=== PATIENT | male | born 1970 | race Caucasian/White ===

== ENCOUNTER 2018-05-08 09:46 | Emergency (ER) | payer MEDICARE, MEDICAID ==
[~2018-05-08] VITALS: Ht 177.8 cm; Wt 74.8 kg
[~2018-05-08 09:46] MED LIST: METFORMIN; NORCO; SERAQUEL
[2018-05-08 10:07] VITALS: BP 134/100
[2018-05-08 10:29] LABS: Basophils # (auto) 0.1 uL; Basophils % (auto) 0.7 % (0.0-2.0); Eosinophils # (auto) 0.2 uL; Eosinophils % (auto) 2.8 % (0.0-7.0); Hematocrit 45.8 % (41.0-53.0); Hemoglobin 15.5 g/dL (13.5-17.5); Lymphocytes # (auto) 2.2 uL; Lymphocytes % (auto) 28.9 % (10.0-50.0); Mean Corpuscular Hemoglobin 29.5 pg (28.0-32.0); Mean Corpuscular Hgb Conc. 33.9 g/dL (32.0-36.0); Mean Corpuscular Volume 87.1 fL (80.0-100.0); Monocytes # (auto) 0.5 uL; Monocytes % (auto) 6.7 % (0.0-12.0); Neutrophils # (auto) 4.7 uL; Neutrophils % (auto) 60.9 % (37.0-80.0); Nucleated Red Blood Cells % 0.1 %; Platelet Count (auto) 271 10^3/uL (140-450); Red Blood Cells 5.26 10^6/uL (4.5-5.90); Red Cell Distribution Width 14.5 % (11.8-14.3); White Blood Cell 7.7 10^3/uL (4.4-10.8)
[2018-05-08] MEDS ORDERED: KETOROLAC TROMETH 60MG/2ML VIAL IM ONE (10:30)
[2018-05-08 10:52] LABS: Albumin 4.2 g/dL (3.4-5.0); BUN/Creatinine Ratio 8.3; Bilirubin, Total 0.2 mg/dL (0.2-1.0); Calcium 9.2 mg/dL (8.5-10.1); Potassium 4.6 mmol/L (3.5-5.1); Total Protein 7.9 g/dL (6.4-8.2)
== END 2018-05-08 11:16 | disposition home or self-care (01) ==
LOC: ER 09:51
DX: R10.9 Unspecified abdominal pain (principal); R30.0 Dysuria; R39.15 Urgency of urination; E11.9 Type 2 diabetes mellitus without complications; I10 Essential (primary) hypertension; F17.210 Nicotine dependence, cigarettes, uncomplicated; Z88.1 Allergy status to other antibiotic agents; Z88.8 Allergy status to other drugs, medicaments and biological substances; Z79.84 Long term (current) use of oral hypoglycemic drugs
CPT/HCPCS: 36415; 74176; 80053; 85025; 96372; 99285; J1885

== ENCOUNTER 2018-06-08 08:24 | Emergency (ER) | payer MEDICARE, MEDICAID ==
[~2018-06-08] VITALS: Ht 177.8 cm; Wt 74.8 kg
[2018-06-08 09:05] VITALS: BP 141/100
[2018-06-08] MEDS ORDERED: KETOROLAC TROMETH 60MG/2ML VIAL IM ONE (09:30)
== END 2018-06-08 09:05 | disposition home or self-care (01) ==
LOC: ER 08:24
DX: M77.32 Calcaneal spur, left foot (principal); J44.9 Chronic obstructive pulmonary disease, unspecified; E11.9 Type 2 diabetes mellitus without complications; I10 Essential (primary) hypertension; F12.10 Cannabis abuse, uncomplicated; F17.210 Nicotine dependence, cigarettes, uncomplicated; Z88.8 Allergy status to other drugs, medicaments and biological substances; Z88.1 Allergy status to other antibiotic agents
CPT/HCPCS: 73630; 96372; 99284; J1885

== ENCOUNTER 2019-05-17 10:28 | Inpatient (IN) | payer MEDICARE, MEDICAID ==
[~2019-05-17] VITALS: Ht 177.8 cm; Wt 97.3 kg
[2019-05-17 11:18] LABS: Basophils # (auto) 0.1 uL; Basophils % (auto) 0.8 % (0.0-2.0); Eosinophils # (auto) 0.1 uL; Eosinophils % (auto) 0.8 % (0.0-7.0); Hematocrit 39.6 % (41.0-53.0); Hemoglobin 13.4 g/dL (13.5-17.5); Lymphocytes # (auto) 1.3 uL; Lymphocytes % (auto) 13.4 % (10.0-50.0); Mean Corpuscular Hemoglobin 29.6 pg (28.0-32.0); Mean Corpuscular Hgb Conc. 33.9 g/dL (32.0-36.0); Mean Corpuscular Volume 87.2 fL (80.0-100.0); Monocytes # (auto) 0.7 uL; Monocytes % (auto) 7.2 % (0.0-12.0); Neutrophils # (auto) 7.4 uL; Neutrophils % (auto) 77.8 % (37.0-80.0); Platelet Count (auto) 350 10^3/uL (140-450); Red Blood Cells 4.54 10^6/uL (4.5-5.90); Red Cell Distribution Width 14.2 % (11.8-14.3); White Blood Cell 9.5 10^3/uL (4.4-10.8)
[2019-05-17 11:45] LABS: Albumin 3.9 g/dL (3.4-5.0); BUN/Creatinine Ratio 11.1; Calcium 8.8 mg/dL (8.5-10.1)
[2019-05-17 11:47] LABS: Bilirubin, Total 0.3 mg/dL (0.2-1.0); Total Protein 7.3 g/dL (6.4-8.2)
[2019-05-17 11:50] LABS: Potassium 5.6 mmol/L (3.5-5.1)
[2019-05-17] MEDS ORDERED: SODIUM CHLORIDE 0.9% 1,000 ML IVB ONE (12:46)
[2019-05-17 13:23] LABS: Magnesium 1.5 mg/dL (1.6-2.6)
[2019-05-17 13:27] LABS: Urine Bacteria NONE SEEN /hpf (None Seen); Urine Blood Negative /uL (Negative); Urine Hyaline Cast FEW /lpf (0 - 2); Urine WBC 1 /hpf (0 - 3)
[2019-05-17 13:41] LABS: Magnesium 1.4 mg/dL (1.6-2.6)
[2019-05-17] MEDS ORDERED: MORPHINE SULF INJ 2 MG/ML SYRINGE 1ML IV ONE (15:00)
[2019-05-17] MEDS ORDERED: ONDANSETRON HCL 4 MG/2 ML VIAL IV ONE (15:00)
[2019-05-17] MEDS: MAGNESIUM SULFATE 1GM/100ML 100 ML IV SCH ×2 (15:21→15:53)
[2019-05-17] MEDS ORDERED: ACETAMINOPHEN 500 MG TAB PO PRN (16:15)
[2019-05-17] MEDS ORDERED: DEXTROSE (50%) 50ML SYRG IV PRN (16:15)
[2019-05-17] MEDS ORDERED: NITROGLYCERIN 0.4 MG SL TAB SL PRN (16:15)
[2019-05-17] MEDS ORDERED: LEVOFLOXACIN 500MG 100 ML IV ONE (16:15)
[2019-05-17] MEDS ORDERED: PROMETHAZINE HCL 25 MG/ML 1ML IV PRN (16:15)
[2019-05-17] MEDS ORDERED: TEMAZEPAM 15 MG CAP PO PRN (16:15)
[2019-05-17] MEDS ORDERED: ALBUTEROL SULF 2.5 MG/0.5ML(0.5%) NEB SOLN NEB PRN ×2 (16:15→18:45)
[2019-05-17] MEDS ORDERED: MORPHINE SULF INJ 2 MG/ML SYRINGE 1ML IV PRN (16:15)
[2019-05-17] MEDS: InsuLIN REG 1unit/0.01ml Soln (100units/ml) SC SCH ×2 (17:00)
[2019-05-17 17:05] LABS: CRP High Sensitivity 1.78 mg/dL (< 0.3)
[2019-05-17] MEDS: SODIUM CHLORIDE 0.9% 1,000 ML IV SCH (17:06)
--- NOTE | 2019-05-17 18:00 | NUR ---
Telemetry admit from ER Admitted to Telemetry unit. No report received from ED. Patient oriented to primary RN, unit, room, bed, and unit policies regarding patient care and visiting hours. Patient signed AMA paper to go outside and smoke. Patient now on continuous telemetry monitoring, tele box #[id number]. Dinner tray was ordered for patient. Patient encouraged to call if they need something. All questions and concerns addressed, patient verbalized understanding.
[2019-05-17] MEDS: ALBUTEROL SULF 2.5 MG/0.5ML(0.5%) NEB SOLN NEB SCH (18:26)
[2019-05-17] MEDS: IPRATROPIUM BROM 0.5 MG/2.5ML INH SOL NEB SCH (18:26)
[2019-05-17 18:27] VITALS: BP 109/62
[2019-05-17] MEDS: ACCU-CHEK COMFORT CURVE STRIP VI SCH ×2 (18:27→22:00)
[2019-05-17] MEDS ORDERED: ALBUTEROL SULF 2.5 MG/0.5ML(0.5%) NEB SOLN NEB SCH (18:45)
[2019-05-17] MEDS ORDERED: IPRATROPIUM BROM 0.5 MG/2.5ML INH SOL NEB SCH (18:46)
[2019-05-17] MEDS ORDERED: PANT1INJ3 PO (19:04)
[2019-05-17] MEDS ORDERED: METF-370 PO (19:04)
[2019-05-17] MEDS ORDERED: LOPE2TAB78 PO (19:04)
[2019-05-17] MEDS ORDERED: ASPI81CH43 PO (19:04)
[2019-05-17] MEDS ORDERED: PHE100C PO (19:04)
[2019-05-17] MEDS ORDERED: HYDR-531 PO (19:04)
[2019-05-17] MEDS ORDERED: IBUP600T27 PO (19:04)
[2019-05-17] MEDS ORDERED: BACL10TA PO (19:04)
[2019-05-17] MEDS ORDERED: GABA-339 PO (19:04)
[2019-05-17] MEDS ORDERED: TERA5CAP42 PO (19:04)
[2019-05-17] MEDS ORDERED: OLAN10TA29 PO (19:04)
[2019-05-17] MEDS ORDERED: ERGO400T PO (19:04)
[2019-05-17] MEDS ORDERED: MIRT30TA PO (19:04)
[2019-05-17] MEDS ORDERED: LISI-706 PO (19:04)
[2019-05-17] MEDS: traMADol HCL 50 MG TAB PO PRN (20:00)
--- NOTE | 2019-05-17 20:00 | NUR ---
RECEIVE IN ROOM WENT OUTSIDE FOR A SMOKE SKIN WARM AND DRY TO TOUCH WANTS TO EAT DINNER LATER
[2019-05-17] MEDS ORDERED: OLANZapine 5 MG TAB ONE (21:40)
[2019-05-17] MEDS: metroNIDAZOLE 500 MG TAB PO SCH (21:42)
[2019-05-17] MEDS: MIRTAZAPINE 30 MG TAB PO SCH (21:43)
[2019-05-17 22:00] VITALS: BP 135/80
[2019-05-18] MEDS: methylPREDNISolone SOD SUCC 40 MG/ML VL IV SCH ×3 (00:11→12:34)
[2019-05-18] MEDS: IPRATROPIUM BROM 0.5 MG/2.5ML INH SOL NEB SCH ×4 (00:36→18:59)
[2019-05-18] MEDS: ALBUTEROL SULF 2.5 MG/0.5ML(0.5%) NEB SOLN NEB SCH ×4 (00:36→18:59)
[2019-05-18] MEDS: traMADol HCL 50 MG TAB PO PRN ×2 (02:31→10:59)
[2019-05-18] MEDS: SODIUM CHLORIDE 0.9% 1,000 ML IV SCH ×3 (03:00→13:30)
[2019-05-18 05:23] VITALS: BP 114/74
[2019-05-18] MEDS: metroNIDAZOLE 500 MG TAB PO SCH ×3 (05:55→21:41)
[2019-05-18] MEDS: InsuLIN REG 1unit/0.01ml Soln (100units/ml) SC SCH ×4 (06:35→21:52)
[2019-05-18] MEDS: ACCU-CHEK COMFORT CURVE STRIP VI SCH ×4 (06:35→21:44)
[2019-05-18 07:01] LABS: BUN/Creatinine Ratio 12.3; Calcium 8.8 mg/dL (8.5-10.1); Potassium 5.5 mmol/L (3.5-5.1)
[2019-05-18 07:02] LABS: Albumin 3.6 g/dL (3.4-5.0); Bilirubin, Total 0.3 mg/dL (0.2-1.0); Total Protein 7.2 g/dL (6.4-8.2)
[2019-05-18 09:00] VITALS: BP 151/86
[2019-05-18] MEDS: ENOXAPARIN SOD 40 MG/0.4 ML SYRINGE SC SCH (09:04)
[2019-05-18] MEDS: PANTOPRAZOLE 40 MG TAB PO SCH (09:04)
[2019-05-18] MEDS ORDERED: OLANZapine 5 MG TAB PO SCH ×2 (10:00→22:00)
[2019-05-18 13:00] VITALS: BP 127/78
[2019-05-18] MEDS ORDERED: ALBUTEROL SULF 2.5 MG/0.5ML(0.5%) NEB SOLN NEB PRN (13:30)
--- NOTE | 2019-05-18 13:56 | NUR ---
GI MD AT BEDSIDE PATIENT ALERT AND ORIENTED X4, GI MD AT BEDSIDE. REQUESTED STOOL SAMPLE. WILL CARRY OUT ORDERS REQUESTED
--- NOTE | 2019-05-18 14:15 | NUR ---
STOOL SAMPLE COLLECTED AND SENT TO LAB
[2019-05-18] MEDS ORDERED: LEVOFLOXACIN 500MG 100 ML IV SCH (16:00)
--- NOTE | 2019-05-18 16:17 | NUR ---
PATIENT COMPLAINS OF FEELING ANXIOUS. PATIENT STATED "NOTHIN IS CALMING ME DOWN, CANT I HAVE SOMETHING?" MD PAGED.
[2019-05-18 17:00] VITALS: BP 133/90
--- NOTE | 2019-05-18 19:10 | NUR ---
OPEN SHIFT NOTE PATIENT IS ALERT AND ORIENTED X4. SITTING UP IN BED, NO SIGNS OR SYMPTOMS OF DISTRESS NOTED AT THIS TIME. POC WAS DISCUSSED AND QUESTIONS ANSWERED. BED IS LOCKED IN LOWEST POSITION WITH SIDE RAILS UP X2 FOR SAFETY. CALL LIGHT IS WITHIN REACH AND PATIENT ENCOURAGED TO CALL IF NEEDS ANYTHING. WILL CONTINUE TO ROUND Q1HR AND PRN.
[2019-05-18] MEDS: MIRTAZAPINE 30 MG TAB PO SCH (21:42)
[2019-05-18 21:44] VITALS: BP 122/80
[2019-05-19] MEDS: IPRATROPIUM BROM 0.5 MG/2.5ML INH SOL NEB SCH ×3 (00:29→11:24)
[2019-05-19] MEDS: ALBUTEROL SULF 2.5 MG/0.5ML(0.5%) NEB SOLN NEB SCH ×3 (00:30→11:24)
[2019-05-19] MEDS: traMADol HCL 50 MG TAB PO PRN (04:55)
[2019-05-19] MEDS: SODIUM CHLORIDE 0.9% 1,000 ML IV SCH (04:56)
[2019-05-19 05:06] VITALS: BP 110/66
[2019-05-19 05:59] LABS: Potassium 4.4 mmol/L (3.5-5.1)
[2019-05-19 06:03] LABS: Magnesium 1.5 mg/dL (1.6-2.6)
[2019-05-19 06:11] LABS: Basophils # (auto) 0 uL; Basophils % (auto) 0.2 % (0.0-2.0); Eosinophils # (auto) 0.1 uL; Eosinophils % (auto) 1.7 % (0.0-7.0); Hematocrit 39.7 % (41.0-53.0); Hemoglobin 13.7 g/dL (13.5-17.5); Lymphocytes # (auto) 1.8 uL; Lymphocytes % (auto) 20.5 % (10.0-50.0); Mean Corpuscular Hemoglobin 29.9 pg (28.0-32.0); Mean Corpuscular Hgb Conc. 34.5 g/dL (32.0-36.0); Mean Corpuscular Volume 86.8 fL (80.0-100.0); Monocytes # (auto) 0.9 uL; Monocytes % (auto) 10.1 % (0.0-12.0); Neutrophils # (auto) 5.8 uL; Neutrophils % (auto) 67.5 % (37.0-80.0); Platelet Count (auto) 377 10^3/uL (140-450); Red Blood Cells 4.57 10^6/uL (4.5-5.90); Red Cell Distribution Width 14.2 % (11.8-14.3); White Blood Cell 8.6 10^3/uL (4.4-10.8)
[2019-05-19] MEDS: metroNIDAZOLE 500 MG TAB PO SCH ×2 (06:28→13:34)
[2019-05-19] MEDS: ACCU-CHEK COMFORT CURVE STRIP VI SCH ×2 (06:33→11:30)
[2019-05-19] MEDS: InsuLIN REG 1unit/0.01ml Soln (100units/ml) SC SCH ×2 (06:41→11:30)
[2019-05-19 08:00] VITALS: BP 119/76
--- NOTE | 2019-05-19 08:00 | NUR ---
Opening Shift Note Assumed care of patient, sitting up in bed awake, alert and oriented x4. No S/S of distress/SOB or pain. Bed at lowest locked position, bed side rails up x2 and call light within reach. Instructed on POC and to call for assist PRN, will continue to monitor for changes Q1hr and PRN.Patient has an AMA to step outside and smoke.
[2019-05-19 08:49] VITALS: BP 119/76
[2019-05-19] MEDS: PANTOPRAZOLE 40 MG TAB PO SCH (09:38)
[2019-05-19] MEDS: ENOXAPARIN SOD 40 MG/0.4 ML SYRINGE SC SCH (09:39)
[2019-05-19] MEDS: MAGNESIUM SULFATE 1GM/100ML 100 ML IV SCH ×2 (11:24→12:57)
--- NOTE | 2019-05-19 11:57 | NUR ---
Robb Moore, awaiting call back Addendum: 05/19/19 at 1206 by Soco Allred RN requests for C-diff test to be completed. Will notify Lab.
--- NOTE | 2019-05-19 12:20 | NUR ---
Patient tolerated regular meal well, no c/o N/V. Will continue to monitor.
[2019-05-19 12:34] VITALS: BP 121/80
[2019-05-19 14:28] VITALS: BP 121/80
--- NOTE | 2019-05-19 15:14 | NUR ---
Discharge instructions given as ordered. Encourage to follow up with PMD as instructed. All questions and concerns addressed. Patient verbalized understanding. Medication reconciliation form completed and copy given to patient. Home medications held in Pharmacy returned to patient. IV removed with catheter intact, pressure dressing applied. Telemetry unit returned to ICU. Patient ambulated to car with all personal belongings, accompanied by staff and family member. No distress noted at time of departure.
== END 2019-05-19 15:15 | disposition home or self-care (01) | DRG 392 ==
LOC: ER 10:28 → TELE 10:29 → TELE-CENTR 18:00
PROVIDERS: ADMIT Internal Medicine; ATTEND Internal Medicine
DX: A08.4 Viral intestinal infection, unspecified (principal); J44.1 Chronic obstructive pulmonary disease with (acute) exacerbation; E87.1 Hypo-osmolality and hyponatremia; E11.9 Type 2 diabetes mellitus without complications; I10 Essential (primary) hypertension; F25.9 Schizoaffective disorder, unspecified; E87.5 Hyperkalemia; E83.42 Hypomagnesemia; F12.90 Cannabis use, unspecified, uncomplicated; F17.210 Nicotine dependence, cigarettes, uncomplicated; F31.9 Bipolar disorder, unspecified; G40.909 Epilepsy, unspecified, not intractable, without status epilepticus; M19.90 Unspecified osteoarthritis, unspecified site; K21.9 Gastro-esophageal reflux disease without esophagitis; N28.1 Cyst of kidney, acquired; Z82.49 Family history of ischemic heart disease and other diseases of the circulatory system; Z83.3 Family history of diabetes mellitus; Z88.8 Allergy status to other drugs, medicaments and biological substances; Z88.1 Allergy status to other antibiotic agents; Z71.6 Tobacco abuse counseling
CPT/HCPCS: 36415; 71045; 74176; 76705; 80048; 80053; 81001; 82150; 82962; 83036; 83605; 83690; 83735; 84132; 84484; 85025; 85652; 86141; 87040; 87045; 87427; 87493; 93005; 94640; 96361; 96365; 96367; 96375; G0378; J1815; J1956; J2405

== ENCOUNTER 2019-05-25 17:43 | Emergency (ER) | payer MEDICARE, MEDICAID ==
[~2019-05-25] VITALS: Ht 177.8 cm; Wt 72.6 kg
[~2019-05-25 17:43] MED LIST changes: +ASPI81CH43 PO; +BACL10TA PO; +ERGO400T PO; +GABA-339 PO; +HYDR-531 PO; +IBUP600T27 PO; +LISI-706 PO; +LOPE2TAB78 PO; +METF-370 PO; -METFORMIN; +MIRT30TA PO; -NORCO; +OLAN10TA29 PO; +PANT1INJ3 PO; +PHE100C PO; -SERAQUEL; +TERA5CAP42 PO
[2019-05-25 19:24] VITALS: BP 119/83
[2019-05-25] MEDS ORDERED: KETOROLAC TROMETH 60MG/2ML VIAL IM ONE (19:30)
== END 2019-05-25 19:43 | disposition home or self-care (01) ==
LOC: ER 17:48
DX: M54.42 Lumbago with sciatica, left side (principal); J44.9 Chronic obstructive pulmonary disease, unspecified; E11.9 Type 2 diabetes mellitus without complications; K21.9 Gastro-esophageal reflux disease without esophagitis; E78.5 Hyperlipidemia, unspecified; I10 Essential (primary) hypertension; F17.210 Nicotine dependence, cigarettes, uncomplicated; F12.90 Cannabis use, unspecified, uncomplicated; Z88.8 Allergy status to other drugs, medicaments and biological substances; Z79.84 Long term (current) use of oral hypoglycemic drugs; Z79.82 Long term (current) use of aspirin; Z79.899 Other long term (current) drug therapy
CPT/HCPCS: 96372; 99283; J1885

== ENCOUNTER 2019-07-26 09:23 | Emergency (ER) | payer MEDICARE, MEDICAID ==
[~2019-07-26] VITALS: Ht 177.8 cm; Wt 75.3 kg
[2019-07-26] MEDS ORDERED: MORPHINE SULFATE 4 MG/ML SYR/VIAL IV ONE (11:00)
[2019-07-26] MEDS ORDERED: ONDANSETRON HCL 4 MG/2 ML VIAL IV ONE (11:00)
[2019-07-26 11:23] LABS: Basophils # (auto) 0.1 uL; Basophils % (auto) 1.3 % (0.0-2.0); Eosinophils # (auto) 0.2 uL; Eosinophils % (auto) 2.4 % (0.0-7.0); Hemoglobin 15.2 g/dL (13.5-17.5); Lymphocytes # (auto) 1.8 uL; Mean Corpuscular Hemoglobin 29.6 pg (28.0-32.0); Mean Corpuscular Hgb Conc. 33.7 g/dL (32.0-36.0); Mean Corpuscular Volume 87.8 fL (80.0-100.0); Monocytes # (auto) 0.6 uL; Monocytes % (auto) 9.2 % (0.0-12.0); Neutrophils # (auto) 3.8 uL; Neutrophils % (auto) 59.1 % (37.0-80.0); Nucleated Red Blood Cells % 0.1 %; Platelet Count (auto) 288 10^3/uL (140-450); Red Blood Cells 5.12 10^6/uL (4.5-5.90); White Blood Cell 6.4 10^3/uL (4.4-10.8)
[2019-07-26 11:42] LABS: Albumin 4.1 g/dL (3.4-5.0); Calcium 8.2 mg/dL (8.5-10.1); Potassium 4.1 mmol/L (3.5-5.1)
[2019-07-26 11:45] LABS: BUN/Creatinine Ratio 13.5; Bilirubin, Total 0.2 mg/dL (0.2-1.0); Total Protein 7.7 g/dL (6.4-8.2)
[2019-07-26 12:28] VITALS: BP 111/77
[2019-07-26] MEDS ORDERED: HYDROcodone-ACET 10/325MG TAB PO ONE (13:00)
== END 2019-07-26 13:49 | disposition home or self-care (01) ==
LOC: ER 09:23
DX: N43.3 Hydrocele, unspecified (principal); F17.210 Nicotine dependence, cigarettes, uncomplicated; F12.10 Cannabis abuse, uncomplicated; J44.9 Chronic obstructive pulmonary disease, unspecified; E11.9 Type 2 diabetes mellitus without complications; E78.5 Hyperlipidemia, unspecified; I10 Essential (primary) hypertension; Z79.899 Other long term (current) drug therapy; Z88.8 Allergy status to other drugs, medicaments and biological substances
CPT/HCPCS: 36415; 76870; 80053; 85025; 96374; 96375; 99284; J2270; J2405

== ENCOUNTER 2019-09-04 12:54 | Emergency (ER) | payer MEDICARE, MEDICAID ==
[~2019-09-04] VITALS: Ht 177.8 cm; Wt 75.3 kg
[2019-09-04 13:14] VITALS: BP 121/71
[2019-09-04 14:48] LABS: Basophils # (auto) 0.1 uL; Basophils % (auto) 0.6 % (0.0-2.0); Eosinophils # (auto) 0.1 uL; Eosinophils % (auto) 1.2 % (0.0-7.0); Hematocrit 43.7 % (41.0-53.0); Hemoglobin 14.8 g/dL (13.5-17.5); Lymphocytes # (auto) 2.2 uL; Lymphocytes % (auto) 18.6 % (10.0-50.0); Mean Corpuscular Hemoglobin 29.1 pg (28.0-32.0); Mean Corpuscular Volume 85.5 fL (80.0-100.0); Neutrophils # (auto) 8.2 uL; Neutrophils % (auto) 70.6 % (37.0-80.0); Nucleated Red Blood Cells % 0.2 %; Platelet Count (auto) 292 10^3/uL (140-450); Red Blood Cells 5.11 10^6/uL (4.5-5.90); Red Cell Distribution Width 13.9 % (11.8-14.3); White Blood Cell 11.6 10^3/uL (4.4-10.8)
[2019-09-04 15:05] LABS: Anion Gap 6 (5-15); BUN/Creatinine Ratio 10.6; Blood Alcohol < 3.0 mg/dL (0-5); Blood Urea Nitrogen 11 mg/dL (7-18); Carbon Dioxide 25 mmol/L (21-32); Chloride 100 mmol/L (98-107); GFR African American 98 mL/min; GFR Non-African American 81 mL/min; Glucose 193 mg/dL (74-106); Potassium 3.9 mmol/L (3.5-5.1); Sodium 131 mmol/L (136-145)
== END 2019-09-04 20:03 | disposition left against medical advice (07) ==
LOC: ER 12:54
DX: F25.9 Schizoaffective disorder, unspecified (principal); F12.10 Cannabis abuse, uncomplicated; F17.210 Nicotine dependence, cigarettes, uncomplicated; J44.9 Chronic obstructive pulmonary disease, unspecified; K21.9 Gastro-esophageal reflux disease without esophagitis; E78.5 Hyperlipidemia, unspecified; I10 Essential (primary) hypertension; E11.9 Type 2 diabetes mellitus without complications
CPT/HCPCS: 36415; 80048; 80185; 80320; 85025

== ENCOUNTER 2019-09-10 11:10 | Emergency (ER) | payer MEDICARE, MEDICAID ==
[~2019-09-10] VITALS: Ht 177.8 cm; Wt 73.5 kg
[2019-09-10 12:15] LABS: Basophils # (auto) 0.1 uL; Basophils % (auto) 0.7 % (0.0-2.0); Eosinophils # (auto) 0.1 uL; Eosinophils % (auto) 1.2 % (0.0-7.0); Hematocrit 40.5 % (41.0-53.0); Lymphocytes # (auto) 1.2 uL; Lymphocytes % (auto) 13.4 % (10.0-50.0); Mean Corpuscular Hemoglobin 29.2 pg (28.0-32.0); Mean Corpuscular Hgb Conc. 34.5 g/dL (32.0-36.0); Mean Corpuscular Volume 84.8 fL (80.0-100.0); Monocytes # (auto) 0.5 uL; Monocytes % (auto) 5.6 % (0.0-12.0); Neutrophils % (auto) 79.1 % (37.0-80.0); Nucleated Red Blood Cells % 0.1 %; Platelet Count (auto) 263 10^3/uL (140-450); Red Blood Cells 4.78 10^6/uL (4.5-5.90); White Blood Cell 8.9 10^3/uL (4.4-10.8)
[2019-09-10 12:25] LABS: Urine Bacteria NONE SEEN /hpf (None Seen); Urine Blood Negative /uL (Negative); Urine Specific Gravity 1.011 (1.001-1.035); Urine WBC 1 /hpf (0 - 3)
[2019-09-10 12:40] LABS: Salicylate 4.3 mg/dL (2.8-20.0)
[2019-09-10 12:40] LABS: Alcohol, Urine < 3.0 mg/dL (0-5); Amphetamine Screen, Urine NEGATIVE (NEGATIVE); Barbiturate Scree,Urine NEGATIVE (NEGATIVE); Benzodiazephine Screen, Urine NEGATIVE (NEGATIVE); Cannabinoid Screen, Urine POSITIVE (NEGATIVE); Cocaine Screen, Urine NEGATIVE (NEGATIVE); Opiate Scree,Urine NEGATIVE (NEGATIVE); Phencyclidine Screen, Urine NEGATIVE (NEGATIVE)
[2019-09-10 12:42] LABS: Calcium 8.5 mg/dL (8.5-10.1); Chloride 95 mmol/L (98-107); Potassium 3.9 mmol/L (3.5-5.1); Sodium 131 mmol/L (136-145)
[2019-09-10 12:46] LABS: Alanine Aminotransferase 47 U/L (16-61); Albumin 3.8 g/dL (3.4-5.0); Anion Gap 12 (5-15); Aspartate Aminotransferase 22 U/L (15-37); BUN/Creatinine Ratio 10.2; Blood Alcohol < 3.0 mg/dL (0-5); Blood Urea Nitrogen 10 mg/dL (7-18); Carbon Dioxide 24 mmol/L (21-32); GFR African American 105 mL/min; GFR Non-African American 87 mL/min; Glucose 203 mg/dL (74-106)
[2019-09-10 12:47] LABS: Acetaminophen < 2.0 ug/mL (10-30)
[2019-09-10 12:48] LABS: Alkaline Phosphatase 102 U/L (45-117); Bilirubin, Total 0.3 mg/dL (0.2-1.0); Total Protein 7.3 g/dL (6.4-8.2)
[2019-09-10] MEDS ORDERED: LORazepam 0.5 MG TAB PO ONE (13:45)
[2019-09-10] MEDS ORDERED: LORazepam 0.5 MG TAB PO PRN (20:45)
[2019-09-10] MEDS ORDERED: MIRTAZAPINE 30 MG TAB PO SCH (22:00)
[2019-09-10] MEDS ORDERED: OLANZapine 5 MG TAB PO SCH (22:00)
[2019-09-11] MEDS ORDERED: BACLOFEN 10 MG TAB PO SCH (06:00)
[2019-09-11] MEDS ORDERED: ASPirin 81 mg TAB PO SCH (10:00)
[2019-09-11] MEDS ORDERED: metFORMIN HYDROCHLORIDE 500 MG TAB PO SCH (10:00)
[2019-09-11] MEDS ORDERED: PANTOPRAZOLE 40 MG TAB PO SCH (10:00)
[2019-09-11] MEDS ORDERED: OLANZapine 5 MG TAB PO ONE (10:00)
[2019-09-11] MEDS ORDERED: GABAPENTIN 400 MG CAP PO SCH (10:00)
[2019-09-11 11:58] VITALS: BP 135/76
== END 2019-09-11 12:20 | disposition short-term general hospital (02) ==
LOC: ER 11:10
DX: F20.9 Schizophrenia, unspecified (principal); R45.851 Suicidal ideations; J44.9 Chronic obstructive pulmonary disease, unspecified; E11.9 Type 2 diabetes mellitus without complications; K21.9 Gastro-esophageal reflux disease without esophagitis; E78.5 Hyperlipidemia, unspecified; I10 Essential (primary) hypertension; F17.210 Nicotine dependence, cigarettes, uncomplicated
CPT/HCPCS: 36415; 80053; 80307; 80320; 80329; 81001; 82962; 85025

== ENCOUNTER 2019-10-12 11:09 | Emergency (ER) | payer MEDICARE, MEDICAID ==
[~2019-10-12] VITALS: Ht 177.8 cm; Wt 73.5 kg
[2019-10-12 14:38] VITALS: BP 132/74
[2019-10-12] MEDS ORDERED: IBUPROFEN 600 MG TAB PO ONE (15:45)
== END 2019-10-12 15:59 | disposition home or self-care (01) ==
LOC: ER 11:09
DX: F20.9 Schizophrenia, unspecified (principal); J44.9 Chronic obstructive pulmonary disease, unspecified; E11.9 Type 2 diabetes mellitus without complications; K21.9 Gastro-esophageal reflux disease without esophagitis; E78.5 Hyperlipidemia, unspecified; I10 Essential (primary) hypertension; F17.210 Nicotine dependence, cigarettes, uncomplicated; Z76.0 Encounter for issue of repeat prescription; Z88.8 Allergy status to other drugs, medicaments and biological substances; Z88.1 Allergy status to other antibiotic agents; Z79.82 Long term (current) use of aspirin; Z79.899 Other long term (current) drug therapy; Z79.1 Long term (current) use of non-steroidal anti-inflammatories (NSAID)

== ENCOUNTER → 2019-12-27 | Emergency (ER) | payer MEDICARE, MEDICAID ==
[~2019-12-27] VITALS: Ht 177.8 cm; Wt 77.1 kg
[~2019-12-27] MED LIST changes: +LORazepam 2MG/ML-1ML VIAL IV ONE; -OLAN10TA29 PO; +OLAN1TAB19 PO; +PHENYTOIN IV DILANTIN 1,000 MG in SODIUM CHL 0.9% 250 ML IV ONE
[2019-12-27 14:09] LABS: Basophils # (auto) 0 10 ^3/uL (0-0.2); Basophils % (auto) 0.7 % (0.0-2.0); Eosinophils # (auto) 0.2 10 ^3/uL (0-0.8); Eosinophils % (auto) 3.9 % (0.0-7.0); Hematocrit 37.2 % (41.0-53.0); Hemoglobin 12.6 g/dL (13.5-17.5); Lymphocytes # (auto) 2.1 10 ^3/uL (0.4-5.4); Lymphocytes % (auto) 34.4 % (10.0-50.0); Mean Corpuscular Hemoglobin 29.4 pg (28.0-32.0); Mean Corpuscular Hgb Conc. 33.9 g/dL (32.0-36.0); Mean Corpuscular Volume 86.8 fL (80.0-100.0); Monocytes # (auto) 0.6 10 ^3/uL (0-1.3); Monocytes % (auto) 9.8 % (0.0-12.0); Neutrophils # (auto) 3.2 10 ^3/uL (1.6-8.6); Neutrophils % (auto) 51.2 % (37.0-80.0); Platelet Count (auto) 267 10^3/uL (140-450); Red Blood Cells 4.29 10^6/uL (4.5-5.90); Red Cell Distribution Width 14.4 % (11.8-14.3); White Blood Cell 6.2 10^3/uL (4.4-10.8)
[2019-12-27 14:26] LABS: Albumin 3.5 g/dL (3.4-5.0); BUN/Creatinine Ratio 13.5; Calcium 8.4 mg/dL (8.5-10.1); Magnesium 1.5 mg/dL (1.6-2.6); Potassium 4.7 mmol/L (3.5-5.1)
[2019-12-27 14:29] LABS: Bilirubin, Total 0.1 mg/dL (0.2-1.0); Total Protein 6.8 g/dL (6.4-8.2)
[2019-12-27 16:39] LABS: Alcohol, Urine < 3.0 mg/dL (0-5); Amphetamine Screen, Urine NEGATIVE (NEGATIVE); Barbiturate Scree,Urine NEGATIVE (NEGATIVE); Benzodiazephine Screen, Urine NEGATIVE (NEGATIVE); Cannabinoid Screen, Urine POSITIVE (NEGATIVE); Cocaine Screen, Urine NEGATIVE (NEGATIVE); Opiate Scree,Urine POSITIVE (NEGATIVE); Phencyclidine Screen, Urine NEGATIVE (NEGATIVE)
[2019-12-27 18:06] VITALS: BP 164/95
== END | disposition home or self-care (01) ==
LOC: ER 13:19
DX: G40.909 Epilepsy, unspecified, not intractable, without status epilepticus (principal); I10 Essential (primary) hypertension; E11.9 Type 2 diabetes mellitus without complications; J44.9 Chronic obstructive pulmonary disease, unspecified; K21.9 Gastro-esophageal reflux disease without esophagitis; E78.5 Hyperlipidemia, unspecified
CPT/HCPCS: 36415; 80053; 80185; 80307; 82962; 83735; 84443; 85025; 96365; 96366; 96375; 99284; J1165; J2060; J7050